=== PATIENT | male | born 1990 | race Asian ===

== ENCOUNTER 2018-03-02 23:34 | Emergency (ER) | payer BC ==
[~2018-03-02] VITALS: Ht 170.2 cm; Wt 72.6 kg
[2018-03-02 23:48] VITALS: BP 139/88
--- NOTE | 2018-03-03 01:15 | Emergency Room Report ---
History of Present Illness General Chief Complaint: Overdose Source: Patient, EMS Present Illness HPI 27-year-old male presents ED for evaluation. Patient overdosed on heroin at his house today. Friend called 911. Patient was given Narcan in the field and is now awake alert oriented 3. States he feels okay. 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 Denies any other drug use. Denies chest pain or shortness of breath. No other aggravating relieving factors. Denies any other associated symptoms Allergies: Coded Allergies: No Known Allergies (Unverified , 03/02/18) Patient History Past Medical History: none Past Surgical History: none Pertinent Family History: none Social History: Reports: drug use; Denies: smoking, alcohol use Immunizations: UTD Reviewed Nursing Documentation: PMH: Agreed; PSxH: Agreed Review of Systems All Other Systems: negative except mentioned in HPI Physical Exam Vital Signs Date Time Temp Pulse Resp B/P (MAP) Pulse Ox O2 Delivery O2 Flow Rate FiO2 03/02/18 23:36 98.2 93 18 134/80 98 Room Air 98.2 Sp02 EP Interpretation: reviewed, normal General Appearance: no apparent distress, alert, GCS 15, non-toxic Head: normocephalic, atraumatic Eyes: bilateral eye normal inspection, bilateral eye PERRL ENT: hearing grossly normal, normal pharynx, no angioedema, normal voice Neck: full range of motion, supple/symm/no masses Respiratory: chest non-tender, lungs clear, normal breath sounds, speaking full sentences Cardiovascular #1: regular rate, rhythm, no edema Cardiovascular #2: 2+ carotid (R), 2+ carotid (L), 2+ radial (R), 2+ radial (L) , 2+ dorsalis pedis (R), 2+ dorsalis pedis (L) Gastrointestinal: normal bowel sounds, non tender, soft, non-distended, no guarding, no rebound Rectal: deferred Genitourinary: normal inspection, no CVA tenderness Musculoskeletal: back normal, gait/station normal, normal range of motion, non- tender Neurologic: alert, oriented x3, responsive, motor strength/tone normal, sensory intact, speech normal Psychiatric: judgement/insight normal, memory normal, mood/affect normal, no suicidal/homicidal ideation Reflexes: 3+ bicep (R), 3+ bicep (L), 3+ tricep (R), 3+ tricep (L), 3+ knee (R) , 3+ knee (L) Skin: normal color, no rash, warm/dry, well hydrated Lymphatic: no adenopathy Medical Decision Making Diagnostic Impression: Primary Impression: Drug overdose Qualified Codes: T50.901A - Poisoning by unspecified drugs, medicaments and biological substances, accidental (unintentional), initial encounter ER Course Hospital Course 27-year-old male presents ED status post overdose on heroin. Improved after Narcan Clinical course Patient placed on stretcher. Given that patient is able to provide an adequate history, I see no need to check blood work Patient observed in ED. No signs of apnea or lethargy My assessment shows no evidence of SI/HI requiring psychiatric evaluation. Patient allowed to rest in now awake alert oriented x3. ambulating without difficulty. Family is at bedside and can take patient home. Diagnosis - drug overdose stable and discharged to home. Followup with PMD. Return to ED if symptoms recur or worsen Last Vital Signs Date Time Temp Pulse Resp B/P (MAP) Pulse Ox O2 Delivery O2 Flow Rate FiO2 03/02/18 23:48 98.2 95 21 139/88 98 Room Air 98.2 Status: improved Disposition: HOME, SELF-CARE Condition: Stable Scripts Ondansetron Odt* (ZOFRAN ODT*) 4 Mg Tab.rapdis 4 MG ORAL Q6H PRN for Nausea & Vomiting, #30 TAB 0 Refills Prov: Hernandez Ochoa MD 03/03/18 Referrals: NOT CHOSEN IPA/,REFERRING (PCP) Hernandez Ochoa MD Mar 03, 2018 01:15
[2018-03-03] MEDS ORDERED: ZOFRAN ODT4 MG ORAL (01:36)
[2018-03-03 01:58] VITALS: BP 139/88
== END 2018-03-03 01:59 | disposition home or self-care (01) ==
LOC: EDBD 23:34 → EMR 23:55
DX: T40.1X1A Poisoning by heroin, accidental (unintentional), initial encounter (principal); Y92.009 Unspecified place in unspecified non-institutional (private) residence as the place of occurrence of the external cause
CPT/HCPCS: 96372; 96374; 99284; J2405